=== PATIENT | female | born 1990 | race Caucasian/White ===

== ENCOUNTER 2016-12-10 08:31 | Inpatient (IN) | payer BC ==
[2016-12-10] MEDS ORDERED: Ondansetron 4 MG/2 ML SDV IVPUSH PRN (13:17)
[2016-12-10] MEDS ORDERED: Nalbuphine 20 MG/1 ML Amp IVPUSH PRN (13:17)
[2016-12-10] MEDS ORDERED: Lidocaine 1% 50 ML MDV INJECT PRN (13:17)
[2016-12-10] MEDS ORDERED: Aluminum Hydroxide/Magnesium Hydroxide/Simethicone Susp 30 ML Cup PO PRN (13:17)
[2016-12-10] MEDS ORDERED: Oxytocin/Lactated Ringers 10 UNIT/1,000 ML BAG IV SCH ×2 (13:30)
[2016-12-10] MEDS ORDERED: fentaNYL 100 MCG/2 ML SDV EPIDUR ONE (13:50)
[2016-12-10] MEDS ORDERED: ePHEDrine 50 MG/ML SDV IVPUSH PRN (13:50)
[2016-12-10] MEDS ORDERED: Bupivacaine/fentaNYL/NS 100 ML Bag EPIDUR SCH (14:00)
--- NOTE | 2016-12-10 14:01 | PCM.PREANE ---
Preanesthetic Assessment - Anesthesia/Transfusion/Family Hx Anesthesia History: Prior Anesthesia Without Reaction Family History of Anesthesia Reaction: No Transfusion History: No Prior Transfusion(s) Intubation History: Unknown - Review of Systems General: No Symptoms Pulmonary: No Symptoms Cardiovascular: No Symptoms Gastrointestinal: No Symptoms Neurological: No Symptoms Other: Reports: None - Physical Assessment NPO Status Date: 12/10/16 NPO Status Time: 09:00 Height: 1.68 m Weight: 68.492 kg ASA Class: 2 Mental Status: Alert & Oriented x3 Airway Class: Mallampati = 1 Dentition: Reports: Normal Dentition Thyro-Mental Finger Breadths: 2 Mouth Opening Finger Breadths: 3 ROM/Head Extension: Full Lungs: Clear to Auscultation Cardiovascular: Regular Rate - Lab Values: Laboratory Last Values WBC 12.23 K/mm3 (3.98-10.04) H 12/10/16 13:39 RBC 4.14 M/mm3 (3.98-5.22) 12/10/16 13:39 Hgb 11.5 gm/L (11.2-15.7) 12/10/16 13:39 Hct 34.8 % (34.1-44.9) 12/10/16 13:39 MCV 84.1 fl (79.4-94.8) 12/10/16 13:39 MCH 27.8 pg (25.6-32.2) 12/10/16 13:39 MCHC 33.0 g/dl (32.2-35.5) 12/10/16 13:39 RDW Std Deviation 40.2 fL (36.4-46.3) 12/10/16 13:39 Plt Count 284 K/mm3 (182-369) 12/10/16 13:39 MPV 10.1 fl (9.4-12.3) 12/10/16 13:39 Neut % (Auto) 81.6 % (34.0-71.1) H 12/10/16 13:39 Lymph % (Auto) 10.3 % (19.3-51.7) L 12/10/16 13:39 Lyon % (Auto) 6.9 % (4.7-12.5) 12/10/16 13:39 Eos % (Auto) 0.8 (0.7-5.8) 12/10/16 13:39 Baso % (Auto) 0.2 % (0.1-1.2) 12/10/16 13:39 Neut # (Auto) 9.97 K/mm3 (1.56-6.13) H 12/10/16 13:39 Lymph # (Auto) 1.26 K/mm3 (1.18-3.74) 12/10/16 13:39 Lyon # (Auto) 0.84 K/mm3 (0.24-0.36) H 12/10/16 13:39 Eos # (Auto) 0.10 K/mm3 (0.04-0.36) 12/10/16 13:39 Baso # (Auto) 0.03 K/mm3 (0.01-0.08) 12/10/16 13:39 Urine Color Yellow (Yellow) 12/10/16 10:08 Urine Appearance Clear (Clear) 12/10/16 10:08 Urine pH 6.5 (5.0-8.0) 12/10/16 10:08 Ur Specific [place] 1.020 (1.005-1.030) 12/10/16 10:08 Urine Protein Negative (Negative) 12/10/16 10:08 Urine Glucose (UA) Negative (Negative) 12/10/16 10:08 Urine Ketones Negative (Negative) 12/10/16 10:08 Urine Occult Blood Negative (Negative) 12/10/16 10:08 Urine Nitrite Negative (Negative) 12/10/16 10:08 Urine Bilirubin Negative (Negative) 12/10/16 10:08 Urine Urobilinogen 0.2 (0.2-1.0) 12/10/16 10:08 Ur Leukocyte Esterase 1+ (Negative) H 12/10/16 10:08 - Allergies Allergies/Adverse Reactions: Allergies Allergy/AdvReac Type Severity Reaction Status Date / Time Iodine and Iodide Containing Allergy Rash Verified 12/10/16 14:06 Produc - Anesthesia Plan Pre-Op Medication Ordered: None - Acknowledgements Anesthesia Type Planned: Epidural Pt an Appropriate Candidate for the Planned Anesthesia: Yes Alternatives and Risks of Anesthesia Discussed w Pt/Guardian: Yes Pt/Guardian Understands and Agrees with Anesthesia Plan: Yes PreAnesthesia Questionnaire Other HEENT History: HX OF CONJUCTIVITIS Gastrointestinal History: Reports: Other (See Below) Other Gastrointestinal History: INCISIONAL HERNIA 2014 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 Hematologic History: Reports: Anemia Dermatologic History: Reports: Other (See Below) Other Dermatologic History: ATOPIC DERMATITIS, PETECHIAE, PRURITUS GRAVIDARUM, PT REPORTS AFTER HER SHE HAD A REALLY SEVERE FULL BODY RASH - DOCTORS ARE UNSURE WHETHER IT WAS AN IODINE ALLERGY REACTION OR HORMONE RELATED. - Past Surgical History HEENT Surgical History: Reports: Oral Surgery Other HEENT Surgeries/Procedures: WISDOM TEETH REMOVED GI Surgical History: Reports: Hernia Repair/Other Other Female Surgeries/Procedures: X1 - APPROXIMATELY 2.5 MONTHS AGO - SUBSTANCE USE Smoking Status *Q: Never Smoker Second Hand Smoke Exposure: No Days Per Week of Alcohol Use: 0 Recreational Drug Use History: No - HOME MEDS Home Medications: Home Meds . [No Known Home Meds] 11/09/14 [History] - CURRENT (IN HOUSE) MEDS Current Meds: Current Medications Al Hydroxide/Mg Hydroxide (Mag-Al Plus) 30 ml PO Q8H PRN PRN Reason: Heartburn Ephedrine Sulfate (Ephedrine Sulfate) 5 mg IVPUSH ASDIRECTED PRN PRN Reason: Hypotension Fentanyl/Bupivacaine HCl (Fentanyl/Bupivacaine/Ns 2 Mcg-0.125% 100 Ml) 100 ml EPIDUR ASDIRECTED GUILLERMINA Lactated Ringer's (Ringers, Lactated) 1,000 mls @ 100 mls/hr IV ASDIRECTED GUILLERMINA Oxytocin/Lactated Ringer's (Pitocin In Lr 10 Units/1,000 Ml) 10 unit in 1,000 mls @ 12 mls/hr IV TITRATE GUILLERMINA; 2 MUNITS/MIN PRN Reason: Protocol Oxytocin/Lactated Ringer's (Pitocin In Lr 10 Units/1,000 Ml) 10 unit in 1,000 mls @ 500 mls/hr IV .CONTINUOUS GUILLERMINA Lidocaine HCl (Xylocaine 1%) 50 ml INJECT ONETIME PRN PRN Reason: perineal repair Nalbuphine HCl (Nubain) 10 mg IVPUSH Q2H PRN PRN Reason: Pain (moderate 4-6) Ondansetron HCl (Zofran) 4 mg IVPUSH Q4H PRN PRN Reason: Nausea/Vomiting Discontinued Medications Fentanyl (Sublimaze) 100 mcg EPIDUR ONETIME ONE Stop: 12/10/16 13:51
[2016-12-10] MEDS: Lactated Ringers 1,000 ML IV SCH ×3 (18:26→20:19)
[2016-12-10] MEDS ORDERED: fentaNYL 100 MCG/2 ML SDV ONE (19:37)
--- NOTE | 2016-12-11 03:18 | PCM.SN ---
- Free Text/Narrative Note: Linn is a 26-year-old 4 now para 4004 white female who was admitted on 12/10/2016 in active labor. She had a previous section for prolapsed cord with her last . Prior to that she had 2 vaginal deliveries. She was desiring a upon admission and precautions were taken including IV placement, lab draw for section, continuous monitoring of heart tones, consent for and are obtained. The OR and anesthesia crews were notified of candidate in labor and delivery. Patient progressed steadily through labor and became complete at approximately 0200 hours on 2016. She delivered a viable, melendrez, female at 0210 hours. Baby had Apgars of 8 and 9, weight of 7 pounds 14.3 ounces (3580 g) and was 20.5 inches in length. The baby delivered in a right occiput anterior position and was placed on mom's abdomen. The cord was clamped 2 and was cut by the father. Cord blood was obtained. The placenta delivered in a Jennifer presentation, appeared intact and complete and was discarded per patient desire. The patient received Pitocin through the IV after delivery of the baby. This to facilitate increase in uterine tone and decrease bleeding. Estimated blood loss was 100 mL. Condition is good. Patient plans to nurse.
[2016-12-11] MEDS ORDERED: Benzocaine/Menthol 20%-0.5% Spray 56 GM Canister TOP PRN (05:45)
[2016-12-11] MEDS ORDERED: Acetaminophen 325 MG Tab PO PRN (05:45)
[2016-12-11] MEDS ORDERED: Docusate Sodium 100 MG Cap PO PRN (05:45)
[2016-12-11] MEDS ORDERED: Lanolin 100% Cream 7 GM Tube TOP PRN (05:45)
[2016-12-11] MEDS ORDERED: Witch Hazel Medicated Pads 100/Jar TOP PRN (05:45)
--- NOTE | 2016-12-11 07:17 | HP ---
DATE OF ADMISSION: 12/11/2016 ADMISSION DIAGNOSIS: A 40 and 0/7th week intrauterine , early labor. HISTORY OF PRESENT ILLNESS: The patient is a 26-year-old, 4, para 3-0-0-3 white female, who is admitted in early labor. She is raquel every 3-4 minutes with progressively more intense contractions coming more frequently. It has been going on for several hours. She at this time is approximately 3+ cm dilated and 90% effaced, bulging bag of palomo upon admission. She has reassuring heart tones. She is wanting to do a trial of labor after section to attempt a vaginal after section. She had her section last for cord prolapse and nonreassuring heart tones. Prior to that, she had 2 other pregnancies that delivered vaginally and without problems. She did have some mild bleeding after the delivery in 2010. 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 She had repeat ultrasounds done on 05/24/2016, 07/23/2016, and 08/27/2016, which supported her first ultrasound JUHI. Her course is relatively unremarkable and the depression screen score on 07/24/2016 was 0 on scale of 30. Her group B strep screen is negative. The patient is Rh negative and had RhoGAM on 09/14/2016. She declined a quad screen. Her previous deliveries included the followin. Female born on 07/21/2011 at 39 weeks gestational age after 26 hours of labor, 7 pounds 6 ounce, normal spontaneous vaginal delivery. 2. Female born 12/15/2012 at 39 weeks gestational age after 12 hours of labor, 8 pounds 2 ounces, normal spontaneous vaginal delivery, epidural, post delivery bleeding but no transfusion. 3. Male born 08/24/2016 at 39 and 5/7 weeks gestational age, induction of labor with artificial rupture of membranes and cord prolapse, 7 pounds 14 ounces, emergent primary section, child's name is Dereje. COURSE: The patient was seen early in the course of the at 11 and 3/7 weeks gestational age. She was seen on a regular basis. Her weight increased from 147 pounds to 191 pounds for a 44 pounds weight gain. Fundal growth was appropriate. No major complaints noted. LABORATORY DATA: Shows her blood to be A negative with a negative antibody screen. First labs included a hemoglobin which is low at 10.8 and an MCV which was 86.6. Her platelets were 277,000. Pap smear was negative. She is rubella immune. RPR is nonreactive. Hepatitis B surface antigen and HIV assays were negative. Chlamydia and gonorrhea were both negative. Her second trimester testing showed a hemoglobin of 11.3 after iron therapy. Her platelets were 279,000. One-hour GTT was 99. Group B strep screen was negative. She did receive RhoGAM on 09/14/2016. ALLERGIES: Iodine which causes a rash. CURRENT MEDICATIONS: 1. Ferrous sulfate 325 mg 1 p.o. daily. 2. vitamins daily. PAST MEDICAL HISTORY: 1. Vaginal delivery x2. 2. hemorrhage after her last 2 vaginal delivery. PAST SURGICAL HISTORY: 1. [place] tooth extraction in 2006. 2. Emergency section for prolapse cord in 2014. 3. Hernia surgery in 2016. FAMILY HISTORY: Unremarkable for -related problems, bleeding problems, anesthesia, or blood clotting problems. 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 is Idris Patton. She does not use any significant amounts of alcohol, drugs, or tobacco. REVIEW OF SYSTEMS: SKIN: Negative. CARDIOVASCULAR: No chest pain or exercise intolerance. RESPIRATORY: No infectious symptoms or shortness of breath. GI: Normal. : Changes associated to . MUSCULOSKELETAL: Normal. NEUROLOGICAL: Normal. PHYSICAL EXAMINATION: VITAL SIGNS: Height is 5 feet 6 inches, pre- weight was 147, pre- body mass index was 23.4, weight on 12/10/2016 is 191 for a 44 pounds weight gain. Her blood pressure was somewhat erratic. On 3 evaluations, it was 128/73, 160/80, and 140/80. GENERAL: The patient is a well-developed, well-nourished, pleasant female, stated age, in no acute distress. She is alert and oriented x3. SKIN: Warm and dry without lesions. HEENT: Neck and back within normal limits. LUNGS: Clear with good breath sounds in all lung pena. CARDIOVASCULAR: Shows regular rate and rhythm without murmurs. BREASTS: Exam deferred having been done at first visit and found to be normal. The patient does plan to nurse. ABDOMEN: Protuberant with with fundal height consistent with a term gestation at 38 cm. Baby in a vertex presentation. Cervix in clinic was 2 cm, 90% effaced, -2 station, posterior position, soft. She has dilated to 2 to 3+ cm now. Artificial rupture of membranes are undertaken and has resulted in clear amniotic fluid. EXTREMITIES AND NEUROLOGICAL: Grossly within normal limits. ASSESSMENT: 1. A 40 and 0/7th week intrauterine , early labor. 2. Reassuring heart tones. 3. Rh negative-RhoGAM candidate. 4. Group B strep screen negative. 5. The patient plans to nurse. 6. Patient declined a quad screen during care. PLAN: 1. Anticipate normal spontaneous vaginal delivery, the patient is a candidate. Precautions have been taken including consent for both C- section and . Laboratory testing has been accomplished in case of emergency section. We will do continuous electronic monitoring, anesthesia, and the OR have been alerted that the patient is in Labor and Delivery and is a candidate. 2. Support the patient's decision to nurse. MMMARIO /[id number]
--- NOTE | 2016-12-11 10:26 | PCM48HPAN ---
Post Anesthesia Note - EVALUATION WITHIN 48HRS OF ANESTHETIC Vital Signs in Normal Range: Yes Patient Participated in Evaluation: No (Visited with .) Respiratory Function Stable: Yes Airway Patent: Yes Cardiovascular Function Stable: Yes Hydration Status Stable: Yes Pain Control Satisfactory: Yes Nausea and Vomiting Control Satisfactory: Yes Mental Status Recovered: Yes
[2016-12-11] MEDS: Ibuprofen 600 MG Tab PO PRN ×3 (12:14→21:39)
[2016-12-11] MEDS ORDERED: Bupivacaine 0.25% 10 ML SDV ONE (22:22)
[2016-12-12 03:14] VITALS: BP 111/62
--- NOTE | 2016-12-12 07:54 | PCM.DCSUM1 ---
Discharge Summary - Hospital Course Free Text/Narrative:: Linn is a 26-year-old 4 now para 4004 white female who was admitted on 12/10/2016 in active labor. She had a previous section for prolapsed cord with her last . Prior to that she had 2 vaginal deliveries. She was desiring a upon admission and precautions were taken including IV placement, lab draw for section, continuous monitoring of heart tones, consent for and are obtained. The OR and anesthesia crews were notified of candidate in labor and delivery. Patient progressed steadily through labor and became complete at approximately 0200 hours on 2016. She delivered a viable, melendrez, female infant at 0210 hours. Baby had Apgars of 8 and 9, weight of 7 pounds 14.3 ounces (3580 g) and was 20.5 inches in length. The baby delivered in a right occiput anterior position and was placed on mom's abdomen. The cord was clamped 2 and was cut by the father. Cord blood was obtained. The placenta delivered in a Jennifer presentation, appeared intact and complete and was discarded per patient desire. The patient received Pitocin through the IV after delivery of the baby. This to facilitate increase in uterine tone and decrease bleeding. Estimated blood loss was 100 mL. Condition is good. Patient plans to nurse. patient's done well. She is nursing without problems, ambulating well and desires to go home. - Discharge Data Discharge Date: 12/12/16 Discharge Disposition: Home, Self-Care 01 Condition: Good - Patient Instructions Diet: Regular Diet as Tolerated (Nursing diet was increased calories and calcium as recommended) Activity: As Tolerated (No intercourse or tampons until bleeding resolves) Driving: May Drive Today Showering/Bathing: May Shower Notify Provider of: Fever, Increased Pain, Swelling and Redness, Nausea and/or Vomiting - Discharge Plan Home Medications: Home Meds Vit #108/Iron/FA [ One Tablet] 1 tab PO DAILY 12/10/16 [History ] Ibuprofen [IJD: Ibuprofen] 600 mg PO Q4H PRN #30 tablet 12/12/16 [Rx] Referrals: Herbert Godfrey MD [Physician] - (Return to clinic-Dr. Godfrey-[facility]-6 weeks.) - Discharge Summary/Plan Comment DC Time >30 min.: No Discharge Summary/Plan Comment: Discharge instructions: 1 discharge home 2. Irregular, high fiber, nursing diet with increased calcium and calories as directed. 3. Precautions given concern increased pain, bleeding, temperature elevation, signs/symptoms of DVT/PE. 4. Medications per home medication was printed, discussed with and given to the patient. 5. Return to clinic-Dr. Godfrey6 weeks. Diagnosis: 40 1/7 week intrauterine - successful -delivered Condition: Good - Patient Data Vitals - Most Recent: Last Vital Signs Temp 36.6 C 12/11/16 21:26 Pulse 83 12/11/16 21:26 Resp 15 12/11/16 21:26 BP 111/62 12/11/16 21:26 Pulse Ox 97 12/11/16 21:26 Weight - Most Recent: 68.492 kg I&O - Last 24 hours: Intake & Output 12/11/16 12/12/16 12/12/16 22:59 06:59 14:59 Intake Total 300 Balance 300 Lab Results - Last 24 hrs: Laboratory Results - last 24 hr 12/12/16 Range/Units 05:44 WBC 8.81 (3.98-10.04) K/mm3 RBC 3.35 L (3.98-5.22) M/mm3 Hgb 9.3 L (11.2-15.7) gm/L Hct 28.9 L (34.1-44.9) % MCV 86.3 (79.4-94.8) fl MCH 27.8 (25.6-32.2) pg MCHC 32.2 (32.2-35.5) g/dl RDW Std Deviation 41.4 (36.4-46.3) fL Plt Count 244 (182-369) K/mm3 MPV 10.7 (9.4-12.3) fl Med Orders - Current: Current Medications Acetaminophen (Tylenol) 650 mg PO Q4H PRN PRN Reason: mild pain or fever Benzocaine/Menthol (Dermoplast Pain Relief Talent) 0 gm TOP ASDIRECTED PRN PRN Reason: Perineal Comfort Measure Docusate Sodium (Colace) 100 mg PO BID PRN PRN Reason: Constipation Emollient Ointment (Lansinoh Hpa) 0 gm TOP ASDIRECTED PRN PRN Reason: Sore Nipples Ibuprofen (Motrin) 600 mg PO Q4H PRN PRN Reason: Mild pain or fever Last Admin: 12/11/16 21:39 Dose: 600 mg Witch Negar (Tucks) 1 pad TOP ASDIRECTED PRN PRN Reason: Hemorrhoid pain Discontinued Medications Al Hydroxide/Mg Hydroxide (Mag-Al Plus) 30 ml PO Q8H PRN PRN Reason: Heartburn Bupivacaine HCl (Sensorcaine-Mpf 0.25%) 10 ml .ROUTE .STK-MED ONE Stop: 12/11/16 22:23 Ephedrine Sulfate (Ephedrine Sulfate) 5 mg IVPUSH ASDIRECTED PRN PRN Reason: Hypotension Fentanyl (Sublimaze) 100 mcg EPIDUR ONETIME ONE Stop: 12/10/16 13:51 Fentanyl (Sublimaze) Confirm Administered Dose 100 mcg .ROUTE .STK-MED ONE Stop: 12/10/16 19:38 Last Admin: 12/10/16 19:49 Dose: 100 mcg Fentanyl/Bupivacaine HCl (Fentanyl/Bupivacaine/Ns 2 Mcg-0.125% 100 Ml) 100 ml EPIDUR ASDIRECTED GUILLERMINA Last Admin: 12/10/16 19:49 Dose: 100 ml Lactated Ringer's (Ringers, Lactated) 1,000 mls @ 100 mls/hr IV ASDIRECTED GUILLERMINA Last Admin: 12/10/16 20:19 Dose: 999 mls/hr Oxytocin/Lactated Ringer's (Pitocin In Lr 10 Units/1,000 Ml) 10 unit in 1,000 mls @ 12 mls/hr IV TITRATE GUILLERMINA; 2 MUNITS/MIN PRN Reason: Protocol Oxytocin/Lactated Ringer's (Pitocin In Lr 10 Units/1,000 Ml) 10 unit in 1,000 mls @ 500 mls/hr IV .CONTINUOUS GUILLERMINA Last Admin: 12/11/16 02:15 Dose: 500 mls/hr Lidocaine HCl (Xylocaine 1%) 50 ml INJECT ONETIME PRN PRN Reason: perineal repair Nalbuphine HCl (Nubain) 10 mg IVPUSH Q2H PRN PRN Reason: Pain (moderate 4-6) Ondansetron HCl (Zofran) 4 mg IVPUSH Q4H PRN PRN Reason: Nausea/Vomiting *Q Meaningful Use (DIS) - VTE *Q VTE Criteria *Q: - Stroke *Q Stroke Criteria *Q: - AMI *Q AMI Criteria *Q:
== END 2016-12-12 09:30 | disposition home or self-care (01) | DRG 560 ==
LOC: JD.OBCHECK 08:31 → JD.WOMH 08:31 → JD.OB 11:30 → JD.OBCHECK 13:21 → JD.OB 13:22 → OBSVTOIN 12-11 02:10 → JD.OB 12-11 02:10
PROVIDERS: ADMIT Obstetrics & Gynecology; ATTEND Obstetrics & Gynecology
PROC: 10E0XZZ Delivery of Products of Conception, External Approach (ICD-10-PCS; principal; 2016-12-11)
PROC: 10907ZC Drainage of Amniotic Fluid, Therapeutic from Products of Conception, Via Natural or Artificial Opening (ICD-10-PCS; 2016-12-11)
PROC: 00HU33Z Insertion of Infusion Device into Spinal Canal, Percutaneous Approach (ICD-10-PCS; 2016-12-11)
PROC: 3E0R3CZ (ICD-10-PCS; 2016-12-11)
DX: O34.211 Maternal care for low transverse scar from previous cesarean delivery (principal); N85.8 Other specified noninflammatory disorders of uterus; Z3A.40 40 weeks gestation of pregnancy; Z37.0 Single live birth; O69.81X0 Labor and delivery complicated by cord around neck, without compression, not applicable or unspecified; Z88.8 Allergy status to other drugs, medicaments and biological substances
CPT/HCPCS: 01967; 36415; 81003; 85025; 85027; 86850; 86870; 86900; 86901; A9270-GY; J2590; J3010; J7120

== ENCOUNTER 2018-07-21 06:55 | Inpatient (IN) | payer OTHER ==
[2018-07-21] MEDS ORDERED: Nalbuphine 20 MG/ML 1 ML Syringe IVPUSH PRN (07:35)
[2018-07-21] MEDS ORDERED: Lidocaine 1% 50 ML MDV INJECT ONE (07:35)
[2018-07-21] MEDS ORDERED: Ondansetron 4 MG/2 ML SDV IVPUSH PRN ×2 (07:35→08:10)
[2018-07-21] MEDS ORDERED: Sodium Chloride 0.9% 10 ML Syringe FLUSH PRN (07:35)
[2018-07-21] MEDS ORDERED: Calcium Carbonate 500 MG Tab.Chew PO PRN (07:35)
[2018-07-21] MEDS ORDERED: Oxytocin/Lactated Ringers 10 UNIT/1,000 ML BAG IV SCH ×2 (07:45)
[2018-07-21] MEDS ORDERED: diphenhydrAMINE 50 MG/ML SDV IVPUSH PRN (08:10)
[2018-07-21] MEDS ORDERED: fentaNYL 100 MCG/2 ML SDV EPIDUR PRN (08:10)
[2018-07-21] MEDS ORDERED: ePHEDrine 50 MG/ML SDV IVPUSH PRN (08:10)
[2018-07-21] MEDS ORDERED: fentaNYL/Bupivacaine-NS 2 MCG/ML-0.125%/PF 100 ML Bag EP SCH (08:15)
--- NOTE | 2018-07-21 08:19 | PCM.PREANE ---
Preanesthetic Assessment - Procedure Proposed Procedure: JUDY - Anesthesia/Transfusion/Family Hx Anesthesia History: Prior Anesthesia Without Reaction Family History of Anesthesia Reaction: No Transfusion History: No Prior Transfusion(s) Intubation History: Unknown - Review of Systems General: No Symptoms Pulmonary: No Symptoms Cardiovascular: No Symptoms Gastrointestinal: No Symptoms Neurological: No Symptoms Other: Reports: None - Physical Assessment NPO Status Date: 07/21/18 NPO Status Time: 07:00 Pulse: 98 O2 Sat by Pulse Oximetry: 98 Respiratory Rate: 16 Blood Pressure: 125/85 Temperature: 36.2 C Height: 1.68 m Weight: 86.636 kg ASA Class: 2 Mental Status: Alert & Oriented x3 Airway Class: Mallampati = 1 Dentition: Reports: Normal Dentition Thyro-Mental Finger Breadths: 3 Mouth Opening Finger Breadths: 3 ROM/Head Extension: Full Lungs: Clear to Auscultation, Normal Respiratory Effort Cardiovascular: Regular Rate, Regular Rhythm - Lab Values: Laboratory Last Values WBC 10.41 K/mm3 (3.98-10.04) H 07/21/18 07:25 RBC 4.14 M/mm3 (3.98-5.22) 07/21/18 07:25 Hgb 11.1 gm/L (11.2-15.7) L 07/21/18 07:25 Hct 34.1 % (34.1-44.9) 07/21/18 07:25 MCV 82.4 fl (79.4-94.8) 07/21/18 07:25 MCH 26.8 pg (25.6-32.2) 07/21/18 07:25 MCHC 32.6 g/dl (32.2-35.5) 07/21/18 07:25 RDW Std Deviation 38.9 fL (36.4-46.3) 07/21/18 07:25 Plt Count 333 K/mm3 (182-369) 07/21/18 07:25 MPV 9.9 fl (9.4-12.3) 07/21/18 07:25 - Allergies Allergies/Adverse Reactions: Allergies Allergy/AdvReac Type Severity Reaction Status Date / Time Iodine and Iodide Containing Allergy Rash Verified 12/10/16 14:06 Produc - Blood Blood Available: No Product(s) Available: None - Anesthesia Plan Pre-Op Medication Ordered: None - Acknowledgements Anesthesia Type Planned: Epidural Pt an Appropriate Candidate for the Planned Anesthesia: Yes Alternatives and Risks of Anesthesia Discussed w Pt/Guardian: Yes Pt/Guardian Understands and Agrees with Anesthesia Plan: Yes PreAnesthesia Questionnaire Other HEENT History: HX OF CONJUCTIVITIS Gastrointestinal History: Reports: Other (See Below) Other Gastrointestinal History: INCISIONAL HERNIA 2014 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 Hematologic History: Reports: Anemia Dermatologic History: Reports: Other (See Below) Other Dermatologic History: ATOPIC DERMATITIS, PETECHIAE, PRURITUS GRAVIDARUM, PT REPORTS AFTER HER SHE HAD A REALLY SEVERE FULL BODY RASH - DOCTORS ARE UNSURE WHETHER IT WAS AN IODINE ALLERGY REACTION OR HORMONE RELATED. - Past Surgical History HEENT Surgical History: Reports: Oral Surgery Other HEENT Surgeries/Procedures: WISDOM TEETH REMOVED GI Surgical History: Reports: Hernia Repair/Other Other Female Surgeries/Procedures: X1 - APPROXIMATELY 2.5 MONTHS AGO - SUBSTANCE USE Smoking Status *Q: Never Smoker Tobacco Use Within Last Twelve Months: No Second Hand Smoke Exposure: No Recreational Drug Use History: No - HOME MEDS Home Medications: Home Meds Vit #108/Iron/FA [ One Tablet] 1 tab PO DAILY 12/10/16 [History ] Ibuprofen [IJD: Ibuprofen] 600 mg PO Q4H PRN #30 tablet 12/12/16 [Rx] - CURRENT (IN HOUSE) MEDS Current Meds: Current Medications Calcium Carbonate/Glycine (Tums) 1,000 mg PO Q2H PRN PRN Reason: Indigestion Diphenhydramine HCl (Benadryl) 25 mg IVPUSH Q6H PRN PRN Reason: Pruritis Ephedrine Sulfate (Ephedrine Sulfate) 5 mg IVPUSH ASDIRECTED PRN PRN Reason: Hypotension Fentanyl (Sublimaze) 100 mcg EPIDUR Q3H PRN PRN Reason: Pain Fentanyl/Bupivacaine HCl (Fentanyl/Bupivacaine/Ns 2 Mcg-0.125% 100 Ml) 100 ml EPIDUR ASDIRECTED GUILLERMINA Lactated Ringer's (Ringers, Lactated) 1,000 mls @ 100 mls/hr IV ASDIRECTED GUILLERMINA Oxytocin/Lactated Ringer's (Pitocin In Lr 10 Units/1,000 Ml) 10 unit in 1,000 mls @ 12 mls/hr IV TITRATE GUILLERMINA; Protocol Oxytocin/Lactated Ringer's (Pitocin In Lr 10 Units/1,000 Ml) 10 unit in 1,000 mls @ 500 mls/hr IV .CONTINUOUS GUILLERMINA Nalbuphine HCl (Nubain) 10 mg IVPUSH Q2H PRN PRN Reason: pain Ondansetron HCl (Zofran) 4 mg IVPUSH Q4H PRN PRN Reason: Nausea/Vomiting Ondansetron HCl (Zofran) 4 mg IVPUSH ONETIME PRN PRN Reason: Nausea/Vomiting Sodium Chloride (Saline Flush) 10 ml FLUSH ASDIRECTED PRN PRN Reason: Keep Vein Open Discontinued Medications Lidocaine HCl (Xylocaine 1%) 20 ml INJECT ONETIME ONE Stop: 07/21/18 07:36
[2018-07-21] MEDS: Lactated Ringers 1,000 ML IV SCH ×3 (09:58→15:10)
--- NOTE | 2018-07-21 11:16 | HP ---
DATE OF ADMISSION: 07/21/2018 ADMISSION DIAGNOSES: A 39 and 0/7th weeks intrauterine , elective induction of labor for trial of labor after section to attempt a vaginal after section. HISTORY OF PRESENT ILLNESS: The patient is a 28-year-old, 6, para 4-0-1-4 white female who is admitted for elective induction of labor at 39 and 0/7th weeks gestational age. Her JUHI is 07/28/2018 as based upon a certain last menstrual period starting on 10/21/2017 and supported by 2 ultrasounds done on 12/31/2017 and 03/10/2018. She was found to be 2+ cm, 80% effaced, very soft, - 1 position, and somewhat posterior. Artificial rupture of membranes is undertaken with resultant clear amniotic fluid. heart tones are reassuring. 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 PREVIOUS OBSTETRIC HISTORY: Shows her menarche to be approximately age 12-13. Her frequency of menses is q.30 days. Last menstrual period 10/21/2017, onset was certain, and she was using no control at time of conception. Her pregnancies include the followin. Female infant, born 07/21/2011, at 39 weeks gestational age after 26 hours of labor, 7 pounds 6 ounces baby born via normal spontaneous vaginal delivery. She had an epidural. 2. Female infant, born [birth year]/15[birth year]2010 at 39 weeks gestational age, 12 hours of labor - 8 pounds 2 ounces, born via normal spontaneous vaginal delivery - epidural - had some post delivery bleeding. 3. Male infant, born 08/24/2014 at 39 and 5/7th weeks gestational age - induction of labor with artificial rupture of membranes with delivery of 7 pounds 14 ounces male via emergent section done for prolapsed umbilical cord - child's name is Dereje. 4. Female born on 12/11/2016 at 40 and 1/7th weeks gestational age after 14 hours of labor - 7 pounds 14 ounces - vaginal after section - epidural analgesia use - child's name is Shawna. The course was relatively unremarkable. The patient declined genetic testing. Her [place] depression screen score was 0 on a scale of 30 on 03/18/2018. Group B strep screen was negative. The patient plans to breastfeed. She is Rh negative and did receive RhoGAM at 28 weeks gestational age on 03/18/2018. Her weight gain during the course of the was from a pregravid weight of 150 pounds to a final weight of 192.4 pounds for 42.4 pounds weight gain. Her vital signs were stable throughout the course. Fundal height growth was appropriate. LABORATORY DATA: Laboratory evaluation in shows blood to be A negative with a negative antibody screen. First hemoglobin was 11.4 g/dL and platelets were 289,000. Her belly titer shows immunity. RPR is nonreactive. Hepatitis B surface antigen and HIV assays were both negative. The chlamydia and gonorrhea assays were both negative. Second trimester labs showed hemoglobin 11.0 g/dL and platelets were 260,000. One-hour GTT was normal at 92. RPR done 2nd trimester was also nonreactive. Group B strep screen was negative. ALLERGIES: Iodine which causes a rash. CURRENT MEDICATIONS: vitamins 1 daily. PAST MEDICAL HISTORY: 1. Vaginal delivery x3 with last one being a . 2. Rh-negative status. 3. History of hemorrhage, second . PAST SURGICAL HISTORY: 1. [place] tooth extraction in 2006. 2. in 2014 for prolapsed umbilical cord. 3. Hernia surgery in 2016. FAMILY HISTORY: Mother and father alive and well. No bleeding, clotting, anesthesia problems noted in the family. Maternal grandmother is secondary to pneumonia. Maternal grandfather secondary to lymphoma at age 70. Paternal grandfather secondary to diabetic complications. Paternal grandmother is alive, but has history of heart disease. She has sisters who are alive and well. The younger sister with stage IV endometriosis. No cancer in the family with the exception of an uncle with cancer, type unknown. 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 She is a college graduate. She does not use any significant amounts of alcohol, drugs, or tobacco. REVIEW OF SYSTEMS: GENERAL: The patient doing well. Has no significant concerns. Baby has been active. SKIN: Negative. HEENT, NECK AND BACK: Negative. CARDIOVASCULAR: No chest pain or exercise intolerance. RESPIRATORY: No shortness of breath or infectious symptoms. BREASTS: Changes associated with . The patient plans to breastfeed. GI: Negative. : Changes associated with with body habitus changes and fundal height growth consistent with term . EXTREMITIES AND MUSCULOSKELETAL: Occasional swelling, otherwise unremarkable. NEUROLOGICAL: Negative. PHYSICAL EXAMINATION: GENERAL: The patient is a well-developed, well-nourished, pleasant female, stated age, in no acute distress. VITAL SIGNS: Blood pressure on last evaluation in clinic was 117/64. Weight was 192.4 that has increased from weight of 150 at first visit. She is 5 feet 6 inches. heart rate at that time was 150. SKIN: Warm, dry, without lesions. HEENT, NECK AND BACK: Within normal limits. LUNGS: Clear with good breath sounds in all lung pena. CARDIOVASCULAR: Shows regular rate and rhythm without murmur. BREASTS: Deferred having been done on 1st visit and found to be normal. ABDOMEN: Protuberant with with fundal height of 38 cm. Baby in vertex presentation. : Cervix is 2+ cm, 80% effaced, very soft, -1 station, posterior position, cephalic presentation confirmed. EXTREMITIES: Show no significant edema. NEUROLOGICAL: Grossly within normal limits. ASSESSMENT: 1. Term intrauterine at 39 and 0/7th weeks gestational age, admitted for elective induction of labor. 2. History of section done for prolapsed cord. The patient has had 3 vaginal deliveries with the last one being a successful . The procedure of induction of labor, a trial of labor after section for an attempt at all discussed with the patient including precautions and extra testing and evaluation. She appears to understand and wishes to proceed. She has signed a consent for and for section. 3. The patient plans to breastfeed. 4. The patient is okay with epidural. 5. RPR is nonreactive on last evaluation. Rubella titer shows immunity. 6. Group b strep screen is negative. PLAN: 1. Artificial rupture of membranes, induction of labor. We will augment with Pitocin as indicated. 2. Consents were signed, Anesthesia and Surgery have been informed of the patient's presence in Labor and Delivery. labs have been performed. 3. Support decision. 4. Epidural p.r.n. for patient analgesia. MMODAL /[id number]
--- NOTE | 2018-07-21 20:19 | PCM.SN ---
- Free Text/Narrative Note: Delivery note: Linn is a 28-year-old to 6 now para 5014 white female who was admitted on the morning of 07/20/2018 at 39-0/7 weeks gestational age and with an JUHI of 2018 for elective induction of labor. She has history of previous section but is successfully since that time. The procedure of induction, risks, benefits, possible need to do an emergent section, possible compromise to the baby or to the mother all discussed in detail patient. Precautions designed to reduce risk of these concerns also addressed. She appears to understand, wishes to proceed and signed consent for attempt at and for repeat section. Induction. She was augmented with Pitocin. She had an epidural for labor analgesia. She progressed well to approximately 1540 hrs. to complete cervical dilation. With one contraction she then delivered a viable, melendrez, male was Apgars of 8 and 9, weight of 3850 g (8 pounds 7.8 ounces) and a length of 20.25 inches. Baby's name is Juliet. She delivered over an intact perineum. Pitocin was started IV facilitate increase in uterine tone and decrease likelihood of bleeding. Baby was placed on mom's abdomen. Nose and mouth bulb suctioned. Cord was clamped 2 and then cut by the baby's father. 3 vessels were noted in the umbilical cord. The placenta delivered in a Agarwal presentation, appeared complete and intact and was discarded per patient desire. Estimated blood loss was 100 mL. Patient had no lacerations and therefore required no suturing. She plans to breast- feed. Condition: Good
[2018-07-21] MEDS ORDERED: Docusate Sodium 100 MG Cap PO PRN (20:36)
[2018-07-21] MEDS ORDERED: Lanolin 100% Cream 7 GM Tube TOP PRN (20:36)
[2018-07-21] MEDS ORDERED: Benzocaine/Menthol 20%-0.5% Spray 56 GM Canister TOP PRN (20:36)
[2018-07-21] MEDS ORDERED: Witch Hazel Medicated Pads 40/Jar TOP PRN (20:36)
[2018-07-21] MEDS ORDERED: Acetaminophen 325 MG Tab PO PRN (20:36)
[2018-07-21] MEDS ORDERED: Bupivacaine 0.25% 10 ML SDV ONE (22:00)
[2018-07-21] MEDS ORDERED: Lidocaine 1.5% with EPINEPHrine 1:200,000 5 ML Amp ONE (22:00)
[2018-07-22] MEDS: Ibuprofen 600 MG Tab PO PRN ×2 (08:30→15:55)
[2018-07-22] MEDS ORDERED: Prenatal Multivitamin with Calcium/Folic Acid/Iron Tab PO SCH (09:00)
--- NOTE | 2018-07-22 11:58 | PCM.DCSUM1 ---
Discharge Summary - Hospital Course Free Text/Narrative:: Linn is a 28-year-old to 6 now para 5014 white female who was admitted on the morning of 07/20/2018 at 39-0/7 weeks gestational age and with an JUHI of 2018 for elective induction of labor. She has history of previous section but is successfully since that time. The procedure of induction, risks, benefits, possible need to do an emergent section, possible compromise to the baby or to the mother all discussed in detail patient. Precautions designed to reduce risk of these concerns also addressed. She appears to understand, wishes to proceed and signed consent for attempt at and for repeat section. Induction. She was augmented with Pitocin. She had an epidural for labor analgesia. She progressed well to approximately 1540 hrs. to complete cervical dilation. With one contraction she then delivered a viable, melendrez, male infant was Apgars of 8 and 9, weight of 3850 g (8 pounds 7.8 ounces) and a length of 20.25 inches. Baby's name is Juliet. She delivered over an intact perineum. Pitocin was started IV facilitate increase in uterine tone and decrease likelihood of bleeding. Baby was placed on mom's abdomen. Nose and mouth bulb suctioned. Cord was clamped 2 and then cut by the baby's father. 3 vessels were noted in the umbilical cord. The placenta delivered in a Agarwal presentation, appeared complete and intact and was discarded per patient desire. Estimated blood loss was 100 mL. Patient had no lacerations and therefore required no suturing. She plans to breast- feed. patient is doing well. She is ambulating well, nursing without problems and has minimal lochia. She is desiring discharge home. Condition: Good Diagnosis: Stroke: No - Discharge Data Discharge Date: 07/22/18 Discharge Disposition: Home, Self-Care 01 Condition: Good - Patient Instructions Diet: Regular Diet as Tolerated (Nursing diet with increase calories and calcium is recommended) Activity: As Tolerated (No intercourse or tampons until bleeding resolves.) Driving: May Drive Today Showering/Bathing: May Shower (May take a bath) Notify Provider of: Fever, Increased Pain, Swelling and Redness, Nausea and/or Vomiting - Discharge Plan Home Medications: Home Meds Pnv No.122/Iron/Folic Acid [ Multi Tablet] 1 tab PO DAILY 07/21/18 [ History] Acetaminophen [Tylenol] 650 mg PO Q4H PRN tablet 07/22/18 [Rx] Ibuprofen [Motrin] 600 mg PO Q4H PRN tablet 07/22/18 [Rx] Referrals: Herbert Godfrey MD [Primary Care Provider] - (Return to clinicDr. Godfery3 weeks.) - Discharge Summary/Plan Comment DC Time >30 min.: No Discharge Summary/Plan Comment: Discharge instructions: 1. Discharge home 2. Diet, activity and follow-up discussed with patient. Recommend nursing diet with increased calories and calcium. 3. Precautions given concern increased pain, bleeding, temperature, signs/ symptoms of DVT/PE. 4. Medications per home medication was printed, discussed with and given to the patient. 5. Return to clinic-Dr. Godfrey[facility] in 2 weeks. Diagnosis: Term -delivered Condition: Good - Patient Data Vitals - Most Recent: Last Vital Signs Temp 36.3 C 07/22/18 09:02 Pulse 79 07/22/18 09:02 Resp 16 07/22/18 09:02 BP 132/74 07/22/18 09:02 Pulse Ox 99 07/22/18 09:02 Weight - Most Recent: 86.954 kg I&O - Last 24 hours: Intake & Output 07/21/18 07/22/18 07/22/18 22:59 06:59 14:59 Intake Total 4340 180 Output Total 400 Balance 3940 180 Lab Results - Last 24 hrs: Laboratory Results - last 24 hr 07/21/18 Range/Units 07:25 RPR Non-reactive (NONREACTIVE) Med Orders - Current: Current Medications Acetaminophen (Tylenol) 650 mg PO Q4H PRN PRN Reason: mild pain or fever Benzocaine/Menthol (Dermoplast Pain Relief Bailey) 0 gm TOP ASDIRECTED PRN PRN Reason: Perineal Comfort Measure Docusate Sodium (Colace) 100 mg PO BID PRN PRN Reason: Constipation Emollient Ointment (Lansinoh Hpa) 0 gm TOP ASDIRECTED PRN PRN Reason: Sore Nipples Last Admin: 07/22/18 09:26 Dose: 1 tube Ibuprofen (Motrin) 600 mg PO Q4H PRN PRN Reason: Mild pain or fever Last Admin: 07/22/18 08:30 Dose: 600 mg Prenat Multivit/Cell Tuber Machine/Iron/Folic Ac ( Plus Iron) 1 each PO DAILY GUILLERMINA Last Admin: 07/22/18 08:30 Dose: 1 each Rossy Bills (Tucks) 1 pad TOP ASDIRECTED PRN PRN Reason: Pain Discontinued Medications Calcium Carbonate/Glycine (Tums) 1,000 mg PO Q2H PRN PRN Reason: Indigestion Diphenhydramine HCl (Benadryl) 25 mg IVPUSH Q6H PRN PRN Reason: Pruritis Ephedrine Sulfate (Ephedrine Sulfate) 5 mg IVPUSH ASDIRECTED PRN PRN Reason: Hypotension Fentanyl (Sublimaze) 100 mcg EPIDUR Q3H PRN PRN Reason: Pain Last Admin: 07/21/18 14:00 Dose: 100 mcg Fentanyl/Bupivacaine HCl (Hipuyohq-Eziso-Tz 2 Mcg/Ml-0.125%) 100 ml EP ASDIRECTED GUILLERMINA Last Admin: 07/21/18 14:01 Dose: 100 ml Lactated Ringer's (Ringers, Lactated) 1,000 mls @ 100 mls/hr IV ASDIRECTED GUILLERMINA Last Admin: 07/21/18 15:10 Dose: 100 mls/hr Oxytocin/Lactated Ringer's (Pitocin In Lr 10 Units/1,000 Ml) 10 unit in 1,000 mls @ 12 mls/hr IV TITRATE GUILLERMINA; Protocol Last Titration: 07/21/18 17:42 Dose: 999 mls/hr Oxytocin/Lactated Ringer's (Pitocin In Lr 10 Units/1,000 Ml) 10 unit in 1,000 mls @ 500 mls/hr IV .CONTINUOUS GUILLERMINA Last Admin: 07/21/18 18:19 Dose: 999 mls/hr Lidocaine HCl (Xylocaine 1%) 20 ml INJECT ONETIME ONE Stop: 07/21/18 07:36 Nalbuphine HCl (Nubain) 10 mg IVPUSH Q2H PRN PRN Reason: pain Ondansetron HCl (Zofran) 4 mg IVPUSH Q4H PRN PRN Reason: Nausea/Vomiting Ondansetron HCl (Zofran) 4 mg IVPUSH ONETIME PRN PRN Reason: Nausea/Vomiting Sodium Chloride (Saline Flush) 10 ml FLUSH ASDIRECTED PRN PRN Reason: Keep Vein Open
[2018-07-22 14:52] VITALS: BP 106/77
== END 2018-07-22 20:20 | disposition home or self-care (01) | DRG 807 ==
LOC: JD.OB 06:55 → OBSVTOIN 17:42 → JD.OB 17:42
PROVIDERS: ADMIT Obstetrics & Gynecology; ATTEND Obstetrics & Gynecology
PROC: 10907ZC Drainage of Amniotic Fluid, Therapeutic from Products of Conception, Via Natural or Artificial Opening (ICD-10-PCS; principal; 2018-07-21)
PROC: 10E0XZZ Delivery of Products of Conception, External Approach (ICD-10-PCS; principal; 2018-07-21)
PROC: 00HU33Z Insertion of Infusion Device into Spinal Canal, Percutaneous Approach (ICD-10-PCS; 2018-07-21)
PROC: 3E0R3BZ Introduction of Anesthetic Agent into Spinal Canal, Percutaneous Approach (ICD-10-PCS; 2018-07-21)
DX: O34.219 Maternal care for unspecified type scar from previous cesarean delivery (principal); Z37.0 Single live birth; N85.8 Other specified noninflammatory disorders of uterus; Z3A.39 39 weeks gestation of pregnancy; Z88.8 Allergy status to other drugs, medicaments and biological substances
CPT/HCPCS: 36415; 51702; 59025; 59409; 85027; 86592; A9270-GY; J2590; J3010; J3490; J7120

== ENCOUNTER 2020-03-29 07:01 | Inpatient (IN) | payer OTHER ==
--- NOTE | 2020-03-29 06:19 | PCM.LDHP ---
L&D History of Present Illness - General Date of Service: 03/29/20 Admit Problem/Dx: Admission Diagnosis/Problem Admission Diagnosis/Problem 03/29/20 06:06 Linn is a 30-year-old 6 para 5-0-0-5 female admitted on the a.m. of 03/29/2020 at weeks gestational age with an JUHI of 04/05/2024 induction of labor. Source of Information: Patient History Limitations: Reports: No Limitations - History of Present Illness Introduction:: Linn is a 30-year-old 6 para 5-0-0-5 female admitted on the a.m. of 03/29/2020 at weeks gestational age with an JUHI of 04/05/2024 induction of labor. The procedure, process, expectations, limitations of induction of labor discussed in detail with patient. She appears to understand and wishes to pro ceed. 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 JUHI 04/05/2020 as determined by a certain last menstrual period starting on 06/30/2019 and supported by 2 ultrasounds done on 09/24/2019 and 11/12/2019. Patient had menarche at approximately age 11. Cycles are regular and occur on a monthly basis. Her hCG is positive on 07/30/2019. Last menstrual period was certain. Past obstetric experience includes the followin. Female born 07/21/2011 at 39 weeks gestational age after 26 hours of labor7 pounds 6 ouncesepidural useno concerns. 2. Female infant born [birth year]15[birth year]2010 at 39 weeks gestational age after 12 hours of labor8 pounds 2 ouncesepidural used. Some post delivery bleeding but no transfusion. 3. Male infant born 08/24/2014 at 39-5/7 weeks gestational age7 pounds 14 ouncesemergent section for prolapsed cordchild's name is Dereje. 4. Female born 12/12/2001 17-40-1/7 weeks gestational age14 hours of labor-. Epidural usechild's name is Shawna. 5. Male born [birth year]/21/2018 at 39 weeks gestational age after 9 hours of labor8 pounds 8 ouncesepidural usechild's name is Juliet course: Patient was initially seen at 12-2/7 weeks gestational age on 09/24/2019. Ultrasound correlated with dates. She was seen on a regular basis throughout the . Fundal height growth was appropriate weight gain was from 147 to 190.4 pounds for a 43 pound increase. course was relatively unremarkable. She did have an abnormal 1 hour GTT but a normal 3- hour GTT. Group B strep screen is negative. She is Rh- and received Rh immunoglobulin on 01/19/2020. She declined genetic testing. She desires an epidural in labor and delivery. She desires a and is well informed as to the risks and benefits of this as she has done it 2 times in the past. Her [place] depression screen score was 0/30 on 12/03/2019. She plans to breast-feed. Received her influenza vaccination on 02/18/2020. Tdap was given on 01/19/2020. Patient is rubella immune. Hepatitis B immunizations were given in August 2001. labs: At first visit blood was found to be a negative with a negative antibody screen. Her hemoglobin at that time was 12.5 g/dL. Platelets were 329,000. She is rubella immune. RPR was nonreactive. Patient had negative urine culture. Hepatitis B surface antigen HIV assays were both negative. Chlamydia and gonorrhea tests were both negative. Second trimester labs showed a hemoglobin of 11.7 g/dL. Platelets are 321,000. 1 hour GTT is 143. 3-hour GTT showed fasting blood sugar of 84 eight 1 hour glucose of 136. 2-hour glucose is 122 a 3-hour glucose was 74. Program given as described above. B strep screen was negative. Allergies: Iodine which causes a rash. Medications: 1. Mupirocin 2% external ointment as needed 2. vitamins 1 daily. Past medical history: 1. Vaginal delivery x5. 2. hemorrhage with second Past surgical history: 1. [place] teeth extraction 2006 2. 2014 3. Hernia surgery 2016. Family history: Mother and father are alive and well. Maternal grandmother is secondary to pneumonia. Maternal grandfather is secondary to lymphoma is in his 70s. Paternal grandfather is secondary to complications of diabetes. Paternal grandmother is alive but with heart disease. She has sisters who are alive and well. Younger sister with stage IV endometriosis. There are no cancers, related issues, bleeding or blood clotting problems in the family other than a an uncle with cancer type unknown. Social history: Patient is . is Idris Patton. 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 She is a college graduate. She does not use any significant also alcohol, drugs or tobacco. She and her family live in [place], [place]. Review of systems: In general patient has no complaints. The baby has been active. Skin: Negative Lungs: No infectious symptoms or shortness of breath Cardiovascular: No chest pain or exercise intolerance Breasts: No lumps, changes in size, pain, dimpling, discharge or axillary or supraclavicular concerns. GI: Negative : Body habitus changes associated with . Musculoskeletal: Negative Neurological: Negative Physical exam: In general the patient is well-developed, well-nourished, pleasant female of stated age in no acute distress. On last evaluation clinic patient's blood pressure was 142/74. Weight was 190.4. heart rate is 132. Her pre weight was 147. Height is 5 f eet 6 inches. Prepregnancy body mass index is 23.4. Skin is warm dry without lesions. HEENT, neck and back within normal limits. Lungs are clear with good breath sounds in all lung pena. Cardiovascular exam shows regular and rhythm without murmurs. Abdomen is gravid with last fundal height at 38.5 cm. Baby in vertex presentation. Genital shows cervix to be 1 to 2 cm / 70%/soft/-3/mid position. Extremities and neurological exam are grossly within normal limits. 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 Hematologic History: Reports: Anemia Dermatologic History: Reports: Other (See Below) Other Dermatologic History: ATOPIC DERMATITIS, PETECHIAE, PRURITUS GRAVIDARUM, PT REPORTS AFTER HER SHE HAD A REALLY SEVERE FULL BODY RASH - DOCTORS ARE UNSURE WHETHER IT WAS AN IODINE ALLERGY REACTION OR HORMONE RELATED. - Past Surgical History HEENT Surgical History: Reports: Oral Surgery Other HEENT Surgeries/Procedures: WISDOM TEETH REMOVED GI Surgical History: Reports: Hernia Repair/Other Other Female Surgeries/Procedures: X1 - APPROXIMATELY 2.5 MONTHS AGO Social & Family History - Family History Family Medical History: No Pertinent Family History H&P Review of Systems - Review of Systems: Review Of Systems: See Below L&D Exam - Exam Exam: See Below Problem List Initiated/Reviewed/Updated: Yes Assessment/Plan Comment:: Assessment/plan: 1. 39-0/7-week intrauterine with patient admitted for elective induction of labor. This is a . Patient has successfully x2 in the past. The procedure of induction of labor in view of history of previous section discussed in detail including risks, benefits, precautions to be taken. She appears to understand and wishes to proceed. We will initiate labor with Pitocin followed by artificial rupture membranes augmentation as possible 2. We will have patient sign a consent for the trial of labor after section for vaginal after section. Obtain labs initially upon admission. Will monitor near continuously throughout the labor. Will maintain high level of surveillance for bleeding, pain, heart tone abnormalities that can be associated with separation of uterine scar. 3. We will inform anesthesia and surgery of candidate presents in labor an d delivery. 4. CBC, type and screen, Covid19 screen, RPR to be done upon admission 5. Epidural for labor analgesia. Will place Gambino catheter and SCDs as indicated post epidural placement. 6. Support breast-feeding decision. 7. Obtain cord blood at the time of delivery-administer Rh immunoglobulin as indicated. 8. Patient is group B strep negative 9. Anticipate .
[~2020-03-29 07:01] MED LIST: Bupivacaine 0.25% 10 ML SDV ONE
[2020-03-29] MEDS ORDERED: Oxytocin/Lactated Ringers 10 UNIT/1,000 ML BAG IV SCH ×2 (07:30)
[2020-03-29] MEDS ORDERED: Sodium Chloride 0.9% 10 ML Syringe FLUSH PRN (07:30)
[2020-03-29] MEDS ORDERED: diphenhydrAMINE 50 MG/ML SDV IVPUSH PRN (07:30)
[2020-03-29] MEDS ORDERED: fentaNYL 100 MCG/2 ML SDV EPIDUR PRN (07:30)
[2020-03-29] MEDS ORDERED: Bupivacaine/fentaNYL/NS 100 ML Bag EPIDUR PRN (07:30)
[2020-03-29] MEDS ORDERED: Nalbuphine 10 MG/1 ML Vial IVPUSH PRN (07:30)
[2020-03-29] MEDS ORDERED: ePHEDrine 50 MG/ML SDV IVPUSH PRN (07:30)
[2020-03-29] MEDS ORDERED: Lidocaine 1% 50 ML MDV INJECT PRN (07:30)
--- NOTE | 2020-03-29 08:00 | PCM.PREANE ---
Preanesthetic Assessment - Procedure Proposed Procedure: Epidural - Anesthesia/Transfusion/Family Hx Anesthesia History: Prior Anesthesia Without Reaction Family History of Anesthesia Reaction: No Transfusion History: No Prior Transfusion(s) Intubation History: Unknown - Review of Systems General: No Symptoms Pulmonary: No Symptoms Cardiovascular: No Symptoms Gastrointestinal: Abdominal Pain (labor ) Neurological: No Symptoms Other: Reports: None - Physical Assessment Height: 1.68 m Weight: 87.543 kg ASA Class: 2 Mental Status: Alert & Oriented x3 Airway Class: Mallampati = 1 Dentition: Reports: Normal Dentition Thyro-Mental Finger Breadths: 3 Mouth Opening Finger Breadths: 3 ROM/Head Extension: Full Lungs: Clear to Auscultation, Normal Respiratory Effort Cardiovascular: Regular Rate, Regular Rhythm - Allergies Allergies/Adverse Reactions: Allergies Allergy/AdvReac Type Severity Reaction Status Date / Time Iodine and Iodide Containing Allergy Rash Verified 07/21/18 09:37 Produc - Anesthesia Plan Pre-Op Medication Ordered: None - Acknowledgements Anesthesia Type Planned: Epidural Pt an Appropriate Candidate for the Planned Anesthesia: Yes Alternatives and Risks of Anesthesia Discussed w Pt/Guardian: Yes Pt/Guardian Understands and Agrees with Anesthesia Plan: Yes PreAnesthesia Questionnaire Other HEENT History: HX OF CONJUCTIVITIS Gastrointestinal History: Reports: GERD, Other (See Below) Other Gastrointestinal History: INCISIONAL HERNIA 2014 [employer] History: Reports: Other OB/BYN History: HX OF X4, 2 VAGINAL BIRTHS, MOST RECENTLY A C- SECTION X1 in 2014. Hematologic History: Reports: Anemia Dermatologic History: Reports: Other (See Below) Other Dermatologic History: ATOPIC DERMATITIS, PETECHIAE, PRURITUS GRAVIDARUM, PT REPORTS AFTER HER SHE HAD A REALLY SEVERE FULL BODY RASH - DOCTORS ARE UNSURE WHETHER IT WAS AN IODINE ALLERGY REACTION OR HORMONE RELATED. - Past Surgical History HEENT Surgical History: Reports: Oral Surgery Other HEENT Surgeries/Procedures: WISDOM TEETH REMOVED GI Surgical History: Reports: Hernia Repair/Other Other Female Surgeries/Procedures: X1 - APPROXIMATELY 2.5 MONTHS AGO - SUBSTANCE USE Tobacco Use Status *Q: Never Tobacco User Tobacco Use Within Last Twelve Months: No Second Hand Smoke Exposure: No Days Per Week of Alcohol Use: 0 Number of Drinks Per Day: 0 Total Drinks Per Week: 0 Recreational Drug Use History: No - HOME MEDS Home Medications: Home Meds No122/Iron/Folic Acid [ Multi Tablet] 1 tab PO DAILY 07/21/18 [History] Acetaminophen [Tylenol] 650 mg PO Q4H PRN tablet 07/22/18 [Rx] - CURRENT (IN HOUSE) MEDS Current Meds: Current Medications Diphenhydramine HCl (Benadryl) 25 mg IVPUSH Q6H PRN PRN Reason: pruritis Ephedrine Sulfate (Ephedrine Sulfate) 5 mg IVPUSH ASDIRECTED PRN PRN Reason: Hypotension Fentanyl (Sublimaze) 100 mcg EPIDUR Q3H PRN PRN Reason: Pain Fentanyl/Bupivacaine HCl (Fentanyl/Bupivacaine/Ns 2 Mcg-0.125% 100 Ml) 100 ml EPIDUR ASDIRECTED PRN PRN Reason: Pain Oxytocin/Lactated Ringer's (Pitocin In Lr 10 Units/1,000 Ml) 10 unit in 1,000 mls @ 12 mls/hr IV TITRATE GUILLERMINA; Protocol Oxytocin/Lactated Ringer's (Pitocin In Lr 10 Units/1,000 Ml) 10 unit in 1,000 mls @ 500 mls/hr IV .CONTINUOUS GUILLERMINA Lactated Ringer's (Ringers, Lactated) 1,000 mls @ 100 mls/hr IV ASDIRECTED GUILLERMINA Lidocaine HCl (Xylocaine 1%) 50 ml INJECT ONETIME PRN PRN Reason: Other Nalbuphine HCl (Nubain) 10 mg IVPUSH Q2H PRN PRN Reason: Pain Sodium Chloride (Saline Flush) 10 ml FLUSH ASDIRECTED PRN PRN Reason: Keep Vein Open
[2020-03-29] MEDS: Lactated Ringers 1,000 ML IV SCH ×4 (08:21→21:01)
--- OUTSIDE RECORDS SUMMARY | 2020-03-29 08:32 | XMSREPORT ---
:1990 Author Organization [facility] Address [address] [place] [address] Phone Reason For Referral No Reason for Referral was given. History Of Present Illness No HPI available. Assessments No Assessments available Plan of Care Name Dates Details Planned Observations Hospital Referral Request
--- OUTSIDE RECORDS SUMMARY | 2020-03-29 08:34 | XMSREPORT ---
:1990 Author Name Reinbold Address Unavailable Unavailable , Care Team Providers Name Role Phone Epifanio Langston Unavailable Unavailable Sarah Pappas PA-C Unavailable Unavailable Feliberto Unavailable Unavailable Unavailable Unavailable Unavailable Reason for Referral For: Encounter for supervision of normal in third trimester Induction Scheduled for 03-29-2020 Assessments No Information Problems Low back pain (724.2) (M54.5) Need for rhogam due to Rh negative mother (V07.2) (Z29.13) Abnormal GTT (glucose tolerance test) (790.22) (R73.09) Encounter for supervision of normal preg hosea in third trimester (V22.1) (Z34.93) Allergies and Adverse Reactions iodine (Allergy) Reaction: Rash No Known Food Allergies (Allergy) Medications TABS; Take 1 tablet daily Refills: 0 Mupirocin 2 % External Ointment; APPLY A SMALL AMOUNT 3 TIMES DAILY DIRECTED. JOSE Pappas Start: 02-Aug-2018 Quantity: 1 22 GM Tube Refills: 0 Procedures History of Oral Surgery Tooth Extraction Status: Completed History of Section Low Transverse Status: Completed History of Hernia Repair Status: Complet ed Immunizations MMR 0 On: 13-Jun-1989 MMR 0 On: 30-Oct-1993 Lot #: [id number], poliovirus vaccine, unspecified formulation On: 30-Oct-1993 DTaP (Daptacel) On: 30-Oct-1993 Hepatitis B On: 07-Feb-2001 Hepatitis B On: 16-Apr-2001 Hepatitis B On: 08-Sep-2001 Td On: 22-Jan-2008 Tdap (Adacel) On: 22-Jul-2009 Influenza On: 07-Jun-2010 Influenza On: 04-Mar-2014 [facility] Tdap (BOOSTRIX) > AGE 7 On: Jun-2014 Lot #: [id number], [employer] Tdap On: 18-Sep-2016 Lot #: [id number], GLAXO CHO MISHRA Fluzone Quadrivalent 0.5 ML Intramuscular Suspension P refilled Syringe On: 18-Mar-2018 Lot #: [id number], [employer] Tdap On: 27-May-2018 Lot #: [id number], [employer] Adacel 5-2-15.5 LF-MCG/0.5 Intramuscular Suspension On: Lot #: [id number], [employer] Fluzone Quadrivalent 0.5 ML Intramuscular Suspension P refilled Syringe On: 18-Feb-2020 Lot #: [id number], [employer] Family History Family history of hypertension (V17.49) (Z82.49) Status: Act ilya Family history of cardiac disorder (V17.49) (Z82.49) Status: Active Family history of type 2 diabetes mellitus (V18.0) (Z83.3) S tatus: Active Family history of cardiac disorder (V17.49) Status: Active Comments: Family History (Z82.49) Family history of Oral-mouth cancer (145.9) (C06.9) Status: Active Family history of lymphoma (V16.7) (Z80.7) Status: Active Family history of anemia (V18.2) (Z83.2) Status: Active Family history of high cholesterol (V18.19) (Z83.42) Status: Active Family history of osteoporosis (V17.81) (Z82.62) Status: Act ilya Social History - Never smoked tobacco Recorded: Interventions Follow-ups/ReferralsHospital Referral; To Be Done: 29 Mar 2020 Plan of Treatment Planned Goals not documented Results GROUP B STREP BY PCR Laboratory: [facility] Comments: Reason for Exam: Z34.93, 09-Mar-2020 8:15 GROUP B STREP BY PCR NEGATIVE Range: NE GATIVE (Normal) Comments: Interpreta tion: Presumed not colonized for GBS Encounters Appointment; ANCELMO-Staff, Nurse 08-May-2018 11:00 Encounter Diagnosis: Problem not documented
[2020-03-29] MEDS ORDERED: Oxytocin/Lactated Ringers 20 UNIT/1,000 ML BAG IV SCH (20:15)
[2020-03-30] MEDS ORDERED: Methylergonovine 0.2 MG/1 ML Amp IM STA (00:02)
[2020-03-30] MEDS ORDERED: Methylergonovine 0.2 MG/1 ML Amp ONE (00:03)
--- NOTE | 2020-03-30 00:13 | PCM.SN.2 ---
- Free Text/Narrative Note: Delivery note: Linn is a 30-year-old 6 para 5-0-0-5 female admitted on the a.m. of 03/29/2020 at weeks gestational age with an JUHI of 04/05/2024 induction of labor. The procedure, process, expectations, limitations of induction of labor discussed in detail with patient. She appears to understand and wishes to proceed. Covid19 testing was done upon admission and was found to be positive. Patient was having no symptoms whatsoever regarding this diagnosis. Precautions were put in place per protocol. She was started on Pitocin on the a.m. of 01/28/2020 and continued on Pitocin. Cervix initially was 2 cm dilated. Baby in vertex presentation. At approximately 1300 hrs. the membranes ruptured resulting in clear amniotic fluid. From this point on patient's labor increased steadily. Patient underwent epidural analgesia. Pitocin was creased to a maximum of 20 milliunits/min. At approximately 1745 hrs. patient was 3+ centimeters, 90% effaced with -1 station. She then progressed rapidly to complete cervical dilation. At 2340 hrs. on 03/30/2020 she delivered a viable, melenrdez, male infant named Abdiel De in a direct occiput anterior position over an intact perineum. The baby was placed on mom's abdomen, nose and mouth were bulb suction. The cord was allowed to pulsate for 2 to 3 minutes and was clamped x2 and cut by the baby's father Idris. The baby weighed 3360 g (7 pounds 6.5 ounces), was 20.75 inches long and had Apgars of 8 and 9. Perineum was evaluated and found to be intact. No suturing required. Cord blood was obtained. The umbilical cord had 3 vessels. Placenta delivered in a [place] presentation, appeared intact and complete and was discarded per patient desire. Estimated blood loss was approximately 100 cc at the time of delivery. Patient plans to breast-feed. Covid19 precautions will be taken in the . Condition: Good.
[2020-03-30] MEDS ORDERED: Benzocaine/Menthol 20%-0.5% Spray 56 GM Canister TOP PRN (00:19)
[2020-03-30] MEDS ORDERED: Witch Hazel Medicated Pads 40/Jar TOP PRN (00:19)
[2020-03-30] MEDS ORDERED: Acetaminophen 325 MG Tab PO PRN (00:19)
[2020-03-30] MEDS: Ibuprofen 600 MG Tab PO PRN ×4 (01:17→20:48)
[2020-03-30] MEDS: Docusate Sodium 100 MG Cap PO PRN (01:17)
--- NOTE | 2020-03-30 05:57 | PCM.SN.2 ---
- Free Text/Narrative Note: note: day #1. Patient is doing well in the period. Minimal lochia, voiding well, am bulated without problems. Nursing without concerns. Patient is care with Covid19 precautions. Patient is afebrile, vital signs are stable Abdomen is flat, soft, uterus is below the umbilicus and is firm and nontender. Legs are nontender. Assessment: recovery going well. Covid19 precautions being taken. Plan: Routine care. Patient be discharged home within the next 24-48 hours.
[2020-03-30] MEDS ORDERED: Prenatal Multivitamin with Calcium/Folic Acid/Iron Tab PO SCH (09:00)
[2020-03-31] MEDS: Ibuprofen 600 MG Tab PO PRN (02:29)
[2020-03-31] MEDS: Docusate Sodium 100 MG Cap PO PRN (02:29)
--- NOTE | 2020-03-31 05:59 | PCM.DCSUM1 ---
Discharge Summary - Hospital Course Free Text/Narrative:: Linn is a 30-year-old 6 now para 6-0-0-6 female admitted on the a.m. of 03/29/2020 at weeks gestational age with an JUHI of 04/05/2024 induction of labor. The procedure, process, expectations, limitations of induction of labor were discussed in detail with patient. She appeared to understand and wished to proceed. Covid19 testing was done upon admission and was found to be positive. Patient was having no symptoms whatsoever regarding this diagnosis. Precautions were put in place per protocol. She was started on Pitocin on the a.m. of 01/28/2020 and continued on Pitocin. Cervix initially was 2 cm dilated. Baby in vertex presentation. At approximately 1300 hrs. the membranes ruptured resulting in clear amniotic fluid. From this point on patient's labor increased steadily. Patient underwent epidural analgesia. Pitocin was creased to a maximum of 20 milliunits/min. At approximately 1745 hrs. patient was 3+ centimeters, 90% effaced with -1 station. She then progressed rapidly to complete cervical dilation. At 2340 hrs. on 03/30/2020 she delivered a viable, melendrez, male named Abdiel De in a direct occiput anterior position over an intact perineum. The baby was placed on mom's abdomen, nose and mouth were bulb suction. The cord was allowed to pulsate for 2 to 3 minutes and was clamped x2 and cut by the baby's father Idris. The baby weighed 3360 g (7 pounds 6.5 ounces), was 20.75 inches long and had Apgars of 8 and 9. Perineum was evaluated and found to be intact. No suturing required. Cord blood was obtained. The umbilical cord had 3 vessels. Placenta delivered in a [place] presentation, appeared intact and complete and was discarded per patient desire. Estimated blood loss was approximately 100 cc at the time of delivery. Patient is breast-feeding with COVID-19 precautions. patient has done very well. She has minimal lochia. Voiding is without problems. She is ambulating well and breast-feeding is going well. She is experiencing mom has no questions or concerns. Covid19 precautions will be taken in the and after discharge home. Condition: Good. Diagnosis: Stroke: No - Discharge Data Discharge Date: 03/31/20 Discharge Disposition: Home, Self-Care 01 Condition: Good - Referral to Home Health Primary Care Physician: Herbert Godfrey MD - Patient Instructions Diet: Regular Diet as Tolerated (Nursing diet with increased calories and calcium as recommended) Activity: As Tolerated (No intercourse or tampons until bleeding resolves) Driving: May Drive Today Showering/Bathing: May Shower Showering/Bathing, Other: May take a bath Notify Provider of: Fever, Increased Pain, Swelling and Redness, Nausea and/or Vomiting - Discharge Plan Home Medications: Home Meds Acetaminophen [Tylenol] 650 mg PO Q4H PRN tablet 03/31/20 [Rx] Docusate Sodium [Colace] 100 mg PO BID PRN cap 03/31/20 [Rx] Ibuprofen [Motrin] 600 mg PO Q4H PRN tablet 03/31/20 [Rx] Vit with Ca/FA/Iron [ Plus Iron] 1 each PO DAILY tablet 03/31/20 [Rx] rossy Eugene [Tucks] 1 pad TOP ASDIRECTED PRN pad 03/31/20 [Rx] Patient Handouts: COVID-19 Frequently Asked Questions, COVID-19, and Self-Care, Care After Vaginal Delivery, Prevent the Spread of COVID-19 if You Are Sick - [facility] Referrals: Herbert Godfrey MD [Primary Care Provider] - (Return to clinicDr. Godfrey3 weeks) - Discharge Summary/Plan Comment DC Time >30 min.: No Discharge Summary/Plan Comment: Discharge instructions: 1. Discharge home 2. Diet, activity and follow-up discussed with patient. Recommend nursing diet with increased calories and calcium. 3. Precautions given concern increased pain, bleeding, temperature, signs/symptoms of DVT/PE. Also discussed her precautions as it regards her Covid positive status, nursing, interaction with others and family. She appears to understand. 4. Medications per home medication was printed, discussed with and given to the patient. 5. Return to clinic-Dr. Godfrey-[facility] in 3 weeks. Diagnosis: 1. Term -delivered 2. Covid19 positive status Condition: Good - Patient Data Vitals - Most Recent: Last Vital Signs Temp 36.8 C 03/31/20 02:41 Pulse 74 03/31/20 02:41 Resp 14 03/31/20 02:41 BP 109/66 03/31/20 02:41 Pulse Ox 99 03/31/20 02:41 Weight - Most Recent: 87.543 kg I&O - Last 24 hours: Intake & Output 03/30/20 03/30/20 03/31/20 14:59 22:59 06:59 Intake Total 300 Balance 300 Med Orders - Current: Current Medications Acetaminophen (Tylenol) 650 mg PO Q4H PRN PRN Reason: mild pain or fever Benzocaine/Menthol (Dermoplast Pain Relief [place]) 0 gm TOP ASDIRECTED PRN PRN Reason: Perineal Comfort Measure Last Admin: 03/30/20 01:16 Dose: 1 can Documented by: Docusate Sodium (Colace) 100 mg PO BID PRN PRN Reason: Constipation Last Admin: 03/31/20 02:29 Dose: 100 mg Documented by: Ibuprofen (Motrin) 600 mg PO Q4H PRN PRN Reason: Mild pain or fever Last Admin: 03/31/20 02:29 Dose: 600 mg Documented by: Prenat Multivit/[place]/Iron/Folic Ac ( Plus Iron) 1 each PO DAILY GUILLERMINA Last Admin: 03/30/20 08:15 Dose: 1 each Documented by: Rossy Bills ([facility]) 1 pad TOP ASDIRECTED PRN PRN Reason: Perineal Comfort Measure Last Admin: 03/30/20 01:17 Dose: 1 container Documented by: Discontinued Medications Bupivacaine HCl (Sensorcaine-Mpf 0.25%) 10 ml .ROUTE .STK-MED ONE Stop: 03/29/20 00:01 Diphenhydramine HCl (Benadryl) 25 mg IVPUSH Q6H PRN PRN Reason: pruritis Ephedrine Sulfate (Ephedrine Sulfate) 5 mg IVPUSH ASDIRECTED PRN PRN Reason: Hypotension Fentanyl (Sublimaze) 100 mcg EPIDUR Q3H PRN PRN Reason: Pain Last Admin: 03/29/20 17:23 Dose: 100 mcg Documented by: Fentanyl/Bupivacaine HCl (Fentanyl/Bupivacaine/Ns 2 Mcg-0.125% 100 Ml) 100 ml EPIDUR ASDIRECTED PRN PRN Reason: Pain Last Admin: 03/29/20 17:24 Dose: 100 ml Documented by: Oxytocin/Lactated Ringer's (Pitocin In Lr 10 Units/1,000 Ml) 10 unit in 1,000 mls @ 12 mls/hr IV TITRATE GUILLERMINA; Protocol Last Titration: 03/29/20 18:00 Dose: 19 munits/min, 114 mls/hr Documented by: Oxytocin/Lactated Ringer's (Pitocin In Lr 10 Units/1,000 Ml) 10 unit in 1,000 mls @ 500 mls/hr IV .CONTINUOUS GUILLERMINA Lactated Ringer's (Ringers, Lactated) 1,000 mls @ 100 mls/hr IV ASDIRECTED GUILLERMINA Last Admin: 03/29/20 21:01 Dose: 100 mls/hr Documented by: Oxytocin/Lactated Ringer's (Pitocin In Lr 20 Units/1,000 Ml) 20 unit in 1,000 mls @ 60 mls/hr IV TITRATE GUILLERMINA; Protocol Last Admin: 03/29/20 21:02 Dose: 60 mls/hr Documented by: Lidocaine HCl (Xylocaine 1%) 50 ml INJECT ONETIME PRN PRN Reason: Other Methylergonovine Maleate (Methergine) Confirm Administered Dose 0.2 mg .ROUTE .STK-MED ONE Stop: 03/30/20 00:04 Last Admin: 03/30/20 00:05 Dose: 0.2 mg Documented by: Methylergonovine Maleate (Methergine) 0.2 mg IM ONETIME STA Stop: 03/30/20 00:03 Last Admin: 03/30/20 03:26 Dose: Not Given Documented by: Nalbuphine HCl (Nubain) 10 mg IVPUSH Q2H PRN PRN Reason: Pain Sodium Chloride (Saline Flush) 10 ml FLUSH ASDIRECTED PRN PRN Reason: Keep Vein Open
[2020-03-31 10:58] VITALS: BP 122/75; PULSE 80
== END 2020-03-31 12:24 | disposition home or self-care (01) | DRG 805 ==
LOC: JD.OB 07:01 → OBSVTOIN 23:40 → JD.OB 23:40
PROVIDERS: ADMIT Obstetrics & Gynecology; ATTEND Obstetrics & Gynecology
PROC: 10E0XZZ Delivery of Products of Conception, External Approach (ICD-10-PCS; principal; 2020-03-29)
PROC: 10907ZC Drainage of Amniotic Fluid, Therapeutic from Products of Conception, Via Natural or Artificial Opening (ICD-10-PCS; 2020-03-29)
PROC: 3E0P7VZ Introduction of Hormone into Female Reproductive, Via Natural or Artificial Opening (ICD-10-PCS; 2020-03-29)
PROC: 3E033VJ Introduction of Other Hormone into Peripheral Vein, Percutaneous Approach (ICD-10-PCS; 2020-03-29)
PROC: 3E0R3BZ Introduction of Anesthetic Agent into Spinal Canal, Percutaneous Approach (ICD-10-PCS; 2020-03-29)
PROC: 00HU33Z Insertion of Infusion Device into Spinal Canal, Percutaneous Approach (ICD-10-PCS; 2020-03-29)
DX: O98.52 Other viral diseases complicating childbirth (principal); U07.1 COVID-19; Z37.0 Single live birth; O99.02 Anemia complicating childbirth; D64.9 Anemia, unspecified; Z91.041 Radiographic dye allergy status; Z3A.39 39 weeks gestation of pregnancy
CPT/HCPCS: 01967; 36415; 51702; 59025; 59409; 85025; 86592; 86850; 86870; 86900; 86901; A9270-GY; J2210; J2590; J3010; J3490; J7120; U0002

== ENCOUNTER 2022-01-22 06:53 | Inpatient (IN) | payer OTHER ==
[2022-01-22] MEDS ORDERED: Sodium Chloride 0.9% 10 ML Syringe FLUSH PRN (07:06)
[2022-01-22] MEDS ORDERED: Nalbuphine HCl 10 MG/ 1ML Amp IVPUSH PRN (07:06)
[2022-01-22] MEDS ORDERED: Ondansetron 4 MG/2 ML SDV IVPUSH PRN (07:11)
[2022-01-22] MEDS ORDERED: Oxytocin/Lactated Ringers 10 UNIT/1,000 ML BAG IV SCH ×2 (07:15)
[2022-01-22] MEDS: Lactated Ringers 1,000 ML IV SCH ×2 (07:49→12:32)
[2022-01-22] MEDS ORDERED: Bupivacaine/fentaNYL/NS 100 ML Bag EPIDUR PRN (08:09)
[2022-01-22] MEDS ORDERED: diphenhydrAMINE 50 MG/ML SDV IVPUSH PRN (08:09)
[2022-01-22] MEDS ORDERED: fentaNYL 100 MCG/2 ML SDV EPIDUR PRN (08:09)
[2022-01-22] MEDS ORDERED: ePHEDrine 50 MG/ML SDV IVPUSH PRN (08:09)
[2022-01-22] MEDS ORDERED: Sodium Chloride 0.9% 10 ML Syringe FLUSH SCH (09:00)
[2022-01-22] MEDS ORDERED: Methylergonovine 0.2 MG/1 ML Amp IM PRN (15:50)
[2022-01-22] MEDS ORDERED: Methylergonovine 0.2 MG/1 ML Amp IM ONE (16:15)
[2022-01-22] MEDS ORDERED: Acetaminophen 325 MG Tab PO PRN (18:08)
[2022-01-22] MEDS ORDERED: Benzocaine/Menthol 20%-0.5% Spray 78 GM Cannister TOP PRN (18:08)
[2022-01-22] MEDS ORDERED: Witch Hazel Medicated Pads 40/Jar TOP PRN (18:08)
[2022-01-22] MEDS ORDERED: Docusate Sodium 100 MG Cap PO PRN (18:08)
[2022-01-22] MEDS: Ibuprofen 600 MG Tab PO PRN (19:39)
[2022-01-23] MEDS ORDERED: Bupivacaine 0.25% 10 ML SDV ONE (04:00)
[2022-01-23] MEDS ORDERED: Prenatal Multivitamin with Calcium/Folic Acid/Iron Tab PO SCH (09:00)
[2022-01-23] MEDS: Ibuprofen 600 MG Tab PO PRN (09:28)
[2022-01-23 15:45] VITALS: BP 104/60; PULSE 80
== END 2022-01-23 16:30 | disposition home or self-care (01) | DRG 807 ==
LOC: JD.OBCHECK 06:53 → EDSTATUS 06:53 → JD.OB 07:00 → JD.OBCHECK 10:19 → JD.OB 10:20 → OBSVTOIN 15:08 → JD.OB 15:09
PROVIDERS: ADMIT Obstetrics & Gynecology; ATTEND Obstetrics & Gynecology
PROC: 10E0XZZ Delivery of Products of Conception, External Approach (ICD-10-PCS; principal; 2022-01-22)
PROC: 10907ZC Drainage of Amniotic Fluid, Therapeutic from Products of Conception, Via Natural or Artificial Opening (ICD-10-PCS; 2022-01-22)
PROC: 3E033VJ Introduction of Other Hormone into Peripheral Vein, Percutaneous Approach (ICD-10-PCS; 2022-01-22)
PROC: 3E0R3BZ Introduction of Anesthetic Agent into Spinal Canal, Percutaneous Approach (ICD-10-PCS; 2022-01-22)
PROC: 00HU33Z Insertion of Infusion Device into Spinal Canal, Percutaneous Approach (ICD-10-PCS; 2022-01-22)
DX: O44.43 Low lying placenta NOS or without hemorrhage, third trimester (principal); Z37.0 Single live birth; O76 Abnormality in fetal heart rate and rhythm complicating labor and delivery; O99.62 Diseases of the digestive system complicating childbirth; K21.9 Gastro-esophageal reflux disease without esophagitis; Z3A.39 39 weeks gestation of pregnancy; Z86.16 Personal history of COVID-19
CPT/HCPCS: 01967; 36415; 59025; 59409; 85025; 85027; 86592; A9270-GY; J2210; J2590; J3010; J3490; J7120

== ENCOUNTER 2024-01-23 06:55 | Inpatient (IN) | payer OTHER ==
[2024-01-23] MEDS ORDERED: Calcium Carbonate 500 MG Tab.Chew PO PRN (08:04)
[2024-01-23] MEDS ORDERED: Lidocaine 1% 50 ML MDV INJECT PRN (08:04)
[2024-01-23] MEDS ORDERED: Acetaminophen 325 MG Tab PO PRN (08:04)
[2024-01-23] MEDS ORDERED: Ondansetron 4 MG/2 ML SDV IVPUSH PRN (08:04)
[2024-01-23] MEDS ORDERED: Sodium Chloride 0.9% 10 ML Syringe FLUSH PRN (08:04)
[2024-01-23] MEDS ORDERED: Oxytocin/0.9 % Sodium Chloride 30 UNIT/500 ML BAG IV SCH (08:15)
[2024-01-23] MEDS: Oxytocin/0.9 % Sodium Chloride 30 UNIT/500 ML BAG IV SCH (08:19)
[2024-01-23] MEDS: Lactated Ringers 1,000 ML IV SCH (08:20)
[2024-01-23 08:25] LABS: BASOPHILS PERCENT AUTO 0.3 % (0.0-1.0); EOSINOPHILS ABSOLUTE AUTO 0.1 K/mm3 (0.0-0.4); EOSINOPHILS PERCENT AUTO 0.7 % (0.0-6.0); HEMATOCRIT 33.3 % (37.0-47.0); IMMATURE GRAN ABSOLUTE AUTO 0.05 K/mm3 (0.00-0.05); IMMATURE GRAN PERCENT AUTO 0.6 % (0.0-0.4); LYMPHOCYTES ABSOLUTE AUTO 0.9 K/mm3 (1.0-4.8); LYMPHOCYTES PERCENT AUTO 10.8 % (24.0-44.0); MEAN CORPUSCULAR HEMOGLOBIN 28.6 pg (28.0-32.0); MEAN CORPUSCULAR VOLUME 86.7 fl (83.0-99.0); MEAN PLATELET VOLUME 9.4 fl (9.4-12.3); MONOCYTES ABSOLUTE AUTO 0.5 K/mm3 (0.0-0.8); MONOCYTES PERCENT AUTO 5.6 % (0.0-8.0); NEUTROPHILS ABSOLUTE AUTO 7.2 K/mm3 (1.8-7.7); PLATELET COUNT,PLT 262 K/mm3 (150-400); RED BLOOD CELL COUNT 3.84 M/mm3 (4.10-5.30); WHITE BLOOD CELL COUNT,WBC 8.72 K/mm3 (3.9-11.3)
[2024-01-23] MEDS ORDERED: diphenhydrAMINE 50 MG/ML SDV IVPUSH PRN ×2 (08:53→09:33)
[2024-01-23] MEDS ORDERED: ePHEDrine 50 MG/ML SDV IVPUSH PRN ×2 (08:53→09:33)
[2024-01-23] MEDS ORDERED: Bupivacaine/fentaNYL/NS 100 ML Bag EPIDUR PRN (09:33)
[2024-01-23] MEDS: fentaNYL 100 MCG/2 ML SDV EPIDUR PRN (15:17)
[2024-01-23] MEDS: Bupivacaine/fentaNYL/NS 100 ML Bag EPIDUR PRN (15:18)
[2024-01-23] MEDS: Sodium Chloride 0.9% 10 ML Syringe FLUSH SCH (18:28)
[2024-01-23] MEDS: Benzocaine/Menthol 20%-0.5% Spray 78 GM Cannister TOP PRN (20:52)
[2024-01-23] MEDS: Witch Hazel Medicated Pads 40/Jar TOP PRN (20:52)
[2024-01-23] MEDS: Ibuprofen 600 MG Tab PO SCH (20:52)
[2024-01-24 21:08] VITALS: BP 115/72; PULSE 78
== END 2024-01-24 20:30 | disposition home or self-care (01) | DRG 807 ==
LOC: JD.OB 06:55 → OBSVTOIN 18:59 → JD.OB 19:00
PROVIDERS: ADMIT Family Medicine; ATTEND Family Medicine
PROC: 10E0XZZ Delivery of Products of Conception, External Approach (ICD-10-PCS; principal; 2024-01-23)
DX: O99.02 Anemia complicating childbirth (principal); Z37.0 Single live birth; Z3A.39 39 weeks gestation of pregnancy; O26.893 Other specified pregnancy related conditions, third trimester; Z67.11 Type A blood, Rh negative; O34.211 Maternal care for low transverse scar from previous cesarean delivery; D64.9 Anemia, unspecified
CPT/HCPCS: 36415; 51702; 59025; 59409; 85025; 86592; A9270-GY; J3010; J3490; J7120; J7999

== ENCOUNTER 2025-04-16 07:58 | Emergency (ER) | payer BC, OTHER ==
[2025-04-16 08:57] LABS: BASOPHILS ABSOLUTE AUTO 0.0 K/mm3 (0.0-0.2); BASOPHILS PERCENT AUTO 0.5 % (0.0-1.0); EOSINOPHILS ABSOLUTE AUTO 0.0 K/mm3 (0.0-0.4); EOSINOPHILS PERCENT AUTO 0.0 % (0.0-6.0); IMMATURE GRAN ABSOLUTE AUTO 0.02 K/mm3 (0.00-0.05); IMMATURE GRAN PERCENT AUTO 0.5 % (0.0-0.4); LYMPHOCYTES ABSOLUTE AUTO 0.5 K/mm3 (1.0-4.8); LYMPHOCYTES PERCENT AUTO 11.9 % (24.0-44.0); MEAN PLATELET VOLUME 9.2 fl (9.4-12.3); MONOCYTES ABSOLUTE AUTO 0.5 K/mm3 (0.0-0.8); MONOCYTES PERCENT AUTO 11.7 % (0.0-8.0); NEUTROPHILS ABSOLUTE AUTO 2.9 K/mm3 (1.8-7.7); NEUTROPHILS PERCENT AUTO 75.4 % (41.0-71.0); NRBC ABSOLUTE 0.00 (0.00-0.02); NRBC PERCENT 0.0 % (0.0-0.2); PLATELET COUNT,PLT 192 K/mm3 (150-400); RED BLOOD CELL COUNT 4.73 M/mm3 (4.10-5.30); WHITE BLOOD CELL COUNT,WBC 3.85 K/mm3 (3.9-11.3)
[2025-04-16] MEDS: Sodium Chloride 0.9% 10 ML Syringe FLUSH PRN (08:57)
[2025-04-16 09:00] LABS: APPEARANCE,URINE SLT CLOUDY (Clear); GLUCOSE,URINE NEGATIVE (Negative); OCCULT BLOOD,URINE TRACE-LYSED (Negative)
[2025-04-16 09:08] LABS: EPITHELIAL CELLS,URINE 0-5 /hpf (0-5)
[2025-04-16 09:32] LABS: A/G RATIO 1.0 (1-2); ALANINE AMINOTRANSFERASE,ALT 15.0 U/L (14-59); ASPARTATE AMNIOTRANSFERASE,AST 16.0 U/L (15-37); BILIRUBIN TOTAL 0.4 mg/dL (0.2-1.0); BLOOD UREA NITROGEN,BUN 8.0 mg/dL (7-18); CARBON DIOXIDE,CO2 24.0 mEq/L (21-32); CHLORIDE,CL 100.0 mEq/L (98-107); CREATININE 1.1 mg/dL (0.55-1.02); EST CRCL DRUG DOSING (CG) 65.55 mL/min; ESTIMATED GFR 66.0 mL/min (>60); GLUCOSE RANDOM 93.0 mg/dL (70-99); HCG QUANTITATIVE 178.0 mIU/mL; POTASSIUM,K 3.8 mEq/L (3.5-5.1); PROTEIN TOTAL,TP 7.8 g/dl (6.4-8.2); SODIUM,NA 134.0 mEq/L (136-145)
[2025-04-16 13:28] VITALS: BP 157/91; PULSE 114
== END 2025-04-16 13:28 | disposition home or self-care (01) ==
LOC: JD.ED 07:58
DX: O99.511 Diseases of the respiratory system complicating pregnancy, first trimester (principal); J18.9 Pneumonia, unspecified organism; Z91.041 Radiographic dye allergy status; Z3A.01 Less than 8 weeks gestation of pregnancy
CPT/HCPCS: 36415; 71045; 80053; 81001; 84702; 85025; 87040; 87428; 96360; 96361; 99284; J7030

== ENCOUNTER 2025-04-17 09:14 | Emergency (ER) | payer BC ==
[2025-04-17] MEDS: Sodium Chloride 0.9% 10 ML Syringe FLUSH PRN (10:38)
[2025-04-17 10:48] LABS: BASOPHILS ABSOLUTE AUTO 0.0 K/mm3 (0.0-0.2); BASOPHILS PERCENT AUTO 0.3 % (0.0-1.0); EOSINOPHILS ABSOLUTE AUTO 0.0 K/mm3 (0.0-0.4); EOSINOPHILS PERCENT AUTO 0.0 % (0.0-6.0); IMMATURE GRAN ABSOLUTE AUTO 0.01 K/mm3 (0.00-0.05); IMMATURE GRAN PERCENT AUTO 0.3 % (0.0-0.4); LYMPHOCYTES ABSOLUTE AUTO 0.4 K/mm3 (1.0-4.8); LYMPHOCYTES PERCENT AUTO 11.8 % (24.0-44.0); MEAN PLATELET VOLUME 10.1 fl (9.4-12.3); MONOCYTES ABSOLUTE AUTO 0.4 K/mm3 (0.0-0.8); MONOCYTES PERCENT AUTO 10.4 % (0.0-8.0); NEUTROPHILS ABSOLUTE AUTO 2.7 K/mm3 (1.8-7.7); NEUTROPHILS PERCENT AUTO 77.2 % (41.0-71.0); NRBC ABSOLUTE 0.00 (0.00-0.02); NRBC PERCENT 0.0 % (0.0-0.2); PLATELET COUNT,PLT 195 K/mm3 (150-400); RED BLOOD CELL COUNT 4.61 M/mm3 (4.10-5.30); WHITE BLOOD CELL COUNT,WBC 3.55 K/mm3 (3.9-11.3)
[2025-04-17 11:14] LABS: LACTIC ACID 0.8 mmol/L (0.4-2.0)
[2025-04-17 11:23] LABS: A/G RATIO 0.8 (1-2); ALANINE AMINOTRANSFERASE,ALT 16.0 U/L (14-59); BILIRUBIN TOTAL 0.4 mg/dL (0.2-1.0); BLOOD UREA NITROGEN,BUN 5.0 mg/dL (7-18); CARBON DIOXIDE,CO2 23.0 mEq/L (21-32); CHLORIDE,CL 99.0 mEq/L (98-107); CREATININE 0.7 mg/dL (0.55-1.02); EST CRCL DRUG DOSING (CG) 103.01 mL/min; ESTIMATED GFR 114.0 mL/min (>60); GLUCOSE RANDOM 93.0 mg/dL (70-99); HCG QUANTITATIVE 266.0 mIU/mL; POTASSIUM,K 4.1 mEq/L (3.5-5.1); PROTEIN TOTAL,TP 7.9 g/dl (6.4-8.2); SODIUM,NA 135.0 mEq/L (136-145)
[2025-04-17 11:24] LABS: ASPARTATE AMNIOTRANSFERASE,AST 34.0 U/L (15-37); CREATINE KINASE,CK 135.0 U/L (26-192)
[2025-04-17 11:25] LABS: CORONAVIRUS COVID-19 NAA NEGATIVE (NEGATIVE); INFLUENZA A NAA NEGATIVE (NEGATIVE); RESPIRATORY SYNCYTIAL VIR NAA NEGATIVE (NEGATIVE)
[2025-04-17] MEDS: cefTRIAXone 1 GM in Water For Injection, Sterile 10 ML IVPUSH ONE (13:30)
[2025-04-17] MEDS: Ondansetron 4 MG/2 ML SDV IVPUSH ONE (13:40)
[2025-04-17 15:58] VITALS: BP 119/81; PULSE 107
== END 2025-04-17 15:58 | disposition home or self-care (01) ==
LOC: JD.ED 09:14
DX: J18.9 Pneumonia, unspecified organism (principal); R51.9 Headache, unspecified; Z91.041 Radiographic dye allergy status; Z86.16 Personal history of COVID-19
CPT/HCPCS: 36415; 70450; 80053; 82550; 83605; 84702; 85025; 87040; 87637; 96374; 96375; 99284; J0696; J1171; J2270; J2405; J7030